=== PATIENT | female | born 1960 | race Caucasian/White ===

== ENCOUNTER → 2016-06-28 | Day surgery (SDC) | payer BC ==
[~2016-06-28] VITALS: Ht 168.9 cm; Wt 70.5 kg
[~2016-06-28] MED LIST: CEFAZOLIN 1000MG/55 ML D5W IV SCH; FENTANYL CITRATE INJ 50 MCG/1 ML 2 ML VIAL IV ONE; FENTANYL CITRATE INJ 50 MCG/1 ML 2 ML VIAL ONE; LIDOCAINE HCL 1% 20 ML VIAL INJ ONE; LIDOCAINE HCL 1% 20 ML VIAL ONE; LIDOCAINE/EPINEPHRINE 1% INJ 50 ML VIAL ONE; MIDAZOLAM HCL 1 MG/ML 2ML VIAL ONE; MULTCAP98 PO; NUTR-218 PO; ORM MISCELLANEOUS MED XX ONE; SODIUM BICARB 8.4% INJ 50 MEQ/50 ML SYR IV ONE; SODIUM CHLORIDE 0.9% 1000ML IV SCH; VERSED IV ONE
--- NOTE | 2016-06-28 06:04 | History and Physical ---
History & Physical Date of Service Jun 28, 2016. History & Physical CC: Left lower extremity discomfort HPI: Ms. Aden states she has had these since her 3 pregnancies a number of years ago, although they have more recently become aching and discomforting for her as the day goes on. She states that some days are better than others and that she had previously worn compression during her pregnancies, but has not worn it since after having her children. She states that she does perform walking for exercise at least every other day and does elevate her legs in the evening when she is able because it does make help the legs feel slightly better. She denies any bleeding veins, ulcerations or discoloration. She does admit to edema of her bilateral lower extremities, worse in the right leg than the left. She states that the discomfort and the veins are worse in the right leg than the left as well. She underwent ablation of her right lower extermeity with excellent results and now is admitted for ablation of the left lower extremity. She denies headaches, fevers, chills, dizziness, chest pain, shortness of breath, abdominal pain, nausea, vomiting, diarrhea, constipation, dysuria, hematuria, rest pain, claudication or nonhealing wounds or ulcers or other complaints. Her allergies include no known allergies. Her medications are reconciled on the chart and include fluticasone, lisinopril, Metamucil, and multivitamins. PAST MEDICAL HISTORY: Positive for allergic rhinitis, hypertension, cervical polyps, diverticulosis and hypothyroidism. PAST SURGICAL HISTORY: Positive for colonoscopy, inguinal hernia, appendectomy. SOCIAL HISTORY: Negative for tobacco, alcohol or drug use. FAMILY HISTORY: Positive for heart disease, hypertension in her mother and leukemia in her father. REVIEW OF SYSTEMS: Negative for fatigue, fevers, sweats, weight loss, abnormal moles or rashes, vision changes or photophobia, ear pain, sinus problems or sore throat, cough, shortness of breath, hemoptysis or wheezing, chest pain, palpitations or syncope. She does admit to edema in bilateral lower extremities. She denies abdominal pain, nausea, vomiting, diarrhea, constipation, muscle weakness, headaches, dizziness, numbness or seizures. On physical exam, her vital signs today were as follows: Blood pressure of 110/ 62 in her right arm, 100/60 in her left arm, heart rate of 84, respiratory rate 16, and oxygenation 98% on room air. The patient is 66 inches tall and weighs 154 pounds. Constitutional: In general, patient is a healthy for age appearing , well-nourished, well-developed middle-aged female in no acute distress. She ambulates without assistance and is active, alert and oriented x4 with normal recent and remote memory. Her head is normocephalic, atraumatic. Her eyes are EOMI. ENMT exam demonstrates no hearing loss, rhinorrhea or pharyngeal erythema. Her neck is supple, nontender with midline trachea without masses or crepitus. Her lung exam demonstrates no dyspnea, they are clear to auscultation bilaterally. Cardiovascular exam demonstrates nondisplaced apical impulse with a regular rate and rhythm without murmurs, lifts, heaves, thrills or gallops. Her peripheral pulses are full and equal in all extremities unless otherwise noted, specifically they are normal in her carotid, brachial, radial and femoral pulses. Her bilateral lower extremity distal pulses are +2 bilaterally. She has brisk capillary refill and no sign of distal ischemia. Her abdomen is soft, nontender with normoactive bowel sounds in all 4 quadrants without guarding or rebound. There is no flank or CVA tenderness. Her musculoskeletal exam demonstrates normal tone and strength for age. Her bilateral upper extremities demonstrate no cyanosis, edema, clubbing, varicosities or ulcers. Her bilateral lower extremities do demonstrate scattered varicosities. These are extremely large left leg from the distal thigh down to the ankle. She has scattered spider veins as well. She has no firm hard cord, and varicosities are soft and mildly tender. There is no erythema, no warmth. Her left leg has varicosities which are not to the severe extent of her right leg and more in the distal portion of her calf. These are mildly tender. There is no erythema, firm hard cord or warmth noted. She has no ulceration and no left foot edema. She does have ankle and pretibial edema at trace to +1. ASSESSMENT AND PLAN: Imp: Venous insufficiency of the left lower extremity Plan: Patient is admitted for a radiofrequency ablation of her left greater saphenous vein. I have discussed the risks options and benefits of the procedure with the patient. The patient understands the risks options and benefits and agrees to the procedure.
[2016-06-28 07:45] VITALS: BP 112/70; PULSE 80; TEMP 36.5; O2SAT 98; Ht 168.9 cm; Wt 70.5 kg
--- NOTE | 2016-06-28 08:51 | History & Physical Bridge Note ---
H&P Re-Evaluation Bridge Note: I have examined the patient, reviewed the History & Physical and in the interval since the performance of the History & Physical I have noted the following changes of clinical significance: No changes noted
--- NOTE | 2016-06-28 08:52 | Procedure Note ---
Pre-Mod Sedation Assessment General Date of Moderate Sedation: Jun 28, 2016. Vital Signs: Vital Signs Past 12 Hours Date Time Temp Pulse Resp B/P Pulse Ox O2 Delivery O2 Flow Rate FiO2 06/28/16 07:45 36.5 80 16 112/70 98 Room Air Pre-Sedation Airway Assessment Oral Cavity: WNL Smoking Status: Never Smoker Mallampati Classification: Class I ASA Classification: Class I Notes The planned sedation has been discussed with the patient and consent obtained. I have identified the patient, determined the appropriateness of sedation and have assessed the patient immediately prior to the procedure. All medicine(s) and interventions are by my order.
--- NOTE | 2016-06-28 09:44 | Procedure Note ---
Post-Moderate Sedation Plan General Date of Moderate Sedation Jun 28, 2016. Vital Signs: Vital Signs Past 12 Hours Date Time Temp Pulse Resp B/P Pulse Ox O2 Delivery O2 Flow Rate FiO2 06/28/16 07:45 36.5 80 16 112/70 98 Room Air Review - Discharge Plan Post Moderate Sedation Plan: On clinical assessment, the patient appears to have tolerated the conscious sedation without complications. Patient is recovering as anticipated. Patient will continue to be monitored by nursing and may be discharged when conscious sedation discharge criteria are met.
--- NOTE | 2016-06-28 09:45 | [facility] Post Operative Brief Note ---
Immediate Operative Summary Operative Date Jun 28, 2016. Pre-Operative Diagnosis Chronic venous insufficiency left greater saphenous vein Post-Operative Diagnosis same Procedure(s) Performed Left Lower Extremity Greater Saphenous Vein Radiofrequency Ablation, Moderate Concious Sedation [id number] Winters Correctional Nurse Surgeon(s) none Estimated Blood Loss 0 Findings CFV patent post procedure Specimens none Anesthesia Local with moderate conscious sedaton Complication(s) None Disposition
[2016-06-28 09:52] VITALS: BP 117/73; PULSE 63; TEMP 36.7; O2SAT 97
--- NOTE | 2016-06-28 09:59 | Medical Student: [facility] ---
Immediate Operative Summary Operative Date Jun 28, 2016. Pre-Operative Diagnosis Chronic venous insufficiency of left lower extremity Post-Operative Diagnosis same Procedure(s) Performed Radiofrequency ablation of left great saphenous vein w Ultrasound localization Surgeon Dr. Winters [place] Engineer Surgeon(s) none Estimated Blood Loss 0cc Specimens none Anesthesia local Complication(s) None Disposition Recovery Room / PACU
[2016-06-28 10:00] VITALS: BP 112/74; PULSE 68; O2SAT 97
--- NOTE | 2016-06-28 10:13 | DIAGNOSTIC IMAGING REPORT ---
DATE OF PROCEDURE: 06/28/2016 PREOPERATIVE DIAGNOSIS: Left lower extremity greater saphenous vein chronic venous insufficiency. POSTOPERATIVE DIAGNOSIS: Same. PROCEDURES: 1. Radiofrequency ablation of left greater saphenous vein. 2. Moderate conscious sedation, 26 minutes. SURGEON: Dr. Winters. ANESTHETIC: Local with moderate conscious sedation. PROCEDURAL INDICATIONS: The patient is a 56-year-old female with chronic venous insufficiency of both lower extremities. She had an ablation on the right lower extremity with excellent results. She now returns for ablation on the left greater saphenous vein. She understands the risks, options and benefits and agrees to go ahead with this procedure. DESCRIPTION OF PROCEDURE: The patient was taken to the angio suite and placed in supine position. The left leg was then prepped and draped in a sterile manner. Using ultrasound, the greater saphenous vein in the left lower extremity was punctured in the mid calf. A 7-Yemeni sheath was inserted. An 0.035 guidewire was then passed up through the sheath and into the greater saphenous vein junction with the femoral vein. A 100-cm probe was then inserted. It was placed at 2.6 cm from the saphenofemoral junction. Next, Temulsen infusion was then accomplished along the entire length of the saphenous vein. Once the Temulsen infusion was completed, the patient was placed in Trendelenburg position. The saphenous vein was then ablated. We used 8 cycles of 2 applications per site for a section of vein. Once this was completed, the sheath was removed. Pressure was applied. Adequate hemostasis was obtained. Sterile dressings were applied to the puncture site. The common femoral vein and a short stump of the greater saphenous vein was still patent at the end of this procedure. The right leg was then wrapped with an Minesh wrap. Once this was done, the patient was taken out of the Trendelenburg position. She was transported to recovery room in good condition and tolerated the procedure well.
[2016-06-28 10:15] VITALS: BP 117/66; PULSE 65; O2SAT 98
[2016-06-28 10:45] VITALS: BP 115/72; PULSE 64; TEMP 36.7; O2SAT 99
--- NOTE | 2016-06-28 10:55 | Discharge Instructions ---
Discharge Instructions Date of Service Jun 28, 2016. Visit Reason for Visit: Varicose Veins With Pain Discharge Discharge Diagnosis / Problem: Chronic venous insufficiency left leg Discharge Goals Goal(s): Therapeutic intervention Activity Recommendations Activity Limitations: per Instructions/Follow-up section Anesthesia . Post Anesthesia Instructions: If you have had General Anesthesia or IV Sedation: * Do not drive today. * Resume driving when surgeon permits. * Do not make important decisions or sign legal documents today. * Call surgeon for: 1. Temperature elevations greater than 101 degrees F. 2. Uncontrollable pain. 3. Excessive bleeding. 4. Persistent nausea and vomiting. 5. Medication intolerance (nausea, vomiting or rash). * For nausea and vomiting use only clear liquids such as: tea, soda, bouillon until nausea subsides, then gradually increase diet as tolerated. * If you have any concerns or questions, call your surgeon's office. If physician is unavailable and it is an emergency, call 911 or go to the nearest emergency room. . Instructions / Follow-Up Instructions / Follow-Up Call [phone] to schedule a follow up appointment if one not already scheduled. SPECIAL CARE INSTRUCTIONS: Wraps/Dressings: * A compression wrap will be applied to your legs after the procedure and should remain in place until the morning after. * Remove the bandage if it rolls down or causes pain. Rewrap the leg starting at the bottom of the leg, just above the toes. Apply firm, but gently pressure when applying the wrap. * Avoid getting the wrap wet. * You may shower the following morning after you remove the wraps/dressings. Compression Stockings: * Begin wearing compression stockings the day following your procedure (after you have removed the wraps/dressings and showered). * Compression stockings should be put on in the morning and removed right before going to bed. * Stockings should be worn for 2 weeks following the procedure. * YOU MUST OBTAIN THE PRESCRIBED STOCKINGS PRIOR TO YOUR PROCEDURE. Activity: * Walk 4-5 times around the house after you come home from your procedure. * Elevate your leg(s) while sitting. * You may resume your normal activities as tolerated after 48 hours. * AVOID HEAVY LIFTING FOR 1 WEEK AND/OR CAR TRIPS OVER 1 HOUR OR FLYING FOR 2 WEEKS. Possible Complications: * Swelling/Bruising/Soreness - You may have some swelling, bruising and/or soreness after the procedure. you may also feel a "cord or rope" under the skin. This is normal. You may take Tylenol or Ibuprofen for pain as directed. Call our office ([phone]) if you develop: * Any redness, severe swelling, pain in the calf and/or drainage from the puncture sites You will be receiving a call from the Vascular Surgery Nurse after you are discharged. FOLLOW UP VISIT: You will be scheduled for an ultrasound of your leg(s) 4-5 days after the procedure. You will have a follow up visit with your surgeon in 2-4 weeks. If these have not already been scheduled, please call our office at [phone] to schedule. Diet Recommendations Recommended Home Diet: resume previous diet Procedures Procedures Performed: Left Lower Extremity Greater Saphenous Vein Radiofrequency Ablation, Moderate Concious Sedation [id number] Pending Studies Studies pending at discharge: no Medical Emergencies . Who to Call and When: Medical Emergencies: If at any time you feel your situation is an emergency, please call 911 immediately. . Non-Emergent Contact Non-Emergency issues call your: Surgeon . . "Provider Documentation" section prepared by Raphael Winters.
== END | disposition home or self-care (01) ==
LOC: C.ACU 07:18
PROVIDERS: ATTEND Surgery Vascular Surgery
DX: I87.2 Venous insufficiency (chronic) (peripheral) (principal); I10 Essential (primary) hypertension; Z82.49 Family history of ischemic heart disease and other diseases of the circulatory system; Z80.6 Family history of leukemia; Z90.89 Acquired absence of other organs

== ENCOUNTER → 2016-09-01 | Outpatient (CLI) | payer BC ==
[~2016-09-01] MED LIST changes: -CEFAZOLIN 1000MG/55 ML D5W IV SCH; -FENTANYL CITRATE INJ 50 MCG/1 ML 2 ML VIAL IV ONE; -FENTANYL CITRATE INJ 50 MCG/1 ML 2 ML VIAL ONE; -LIDOCAINE HCL 1% 20 ML VIAL INJ ONE; -LIDOCAINE HCL 1% 20 ML VIAL ONE; -LIDOCAINE/EPINEPHRINE 1% INJ 50 ML VIAL ONE; -MIDAZOLAM HCL 1 MG/ML 2ML VIAL ONE; -ORM MISCELLANEOUS MED XX ONE; -SODIUM BICARB 8.4% INJ 50 MEQ/50 ML SYR IV ONE; -SODIUM CHLORIDE 0.9% 1000ML IV SCH; -VERSED IV ONE
== END ==
LOC: C.PAPS 17:56
PROVIDERS: ATTEND Obstetrics & Gynecology
DX: Z01.419 Encounter for gynecological examination (general) (routine) without abnormal findings (principal)